=== PATIENT | male | born 1950 | race Caucasian/White ===

== ENCOUNTER → 2020-11-28 | Outpatient (CLI) | payer MEDICARE ==
[~2020-11-28] MED LIST: IOHEXOL 240 MG/ML 50ML VIAL. ONE; IOHEXOL 300 MG/ML 75 ML VIAL. IV ONE
[2020-11-28 12:07] LABS: HEMOGLOBIN ISTAT 15.3 gm/dL; POTASSIUM ISTAT 4.2 mmol/L (3.5-5.0)
--- NOTE | 2020-11-28 16:19 | RAD ---
PQRS Compliance Statement: One or more of the following individualized dose reduction techniques were utilized for this examinat ion: 1. Automated exposure control 2. Adjustment of the mA and/or kV according to patient size 3. Use of iterative reconstruction technique CT ABDOMEN+PELVIS W Clinical Indication: Reason: CECAL CA STAGING. DRINKING AT 1105 Comparison: None. Technique: Helical CT imaging of the abdomen and pelvis is performed after 75 cc of Omnipaque 300 IV contrast. Oral contrast also administered. Findings: Peripheral predominant patchy reticular opacities in the bilateral lung bases are probably chronic. S mall calcified granuloma medial right lower lobe. Cardiac size normal. Moderate atherosclerotic calcification of the abdominal aorta, no aneurysm. Question minimal gallblad beatriz sludge. The liver, spleen, pancreas, and adrenal glands are normal. Kidneys enhance symmetrically , no hydronephrosis. Mild bilateral perinephric stranding is nonspecific. The stomach is not well distended accentuating the wall thickness. Small duodenal diverticulum. No sm all bowel obstruction. There are subcentimeter mesenteric lymph nodes. Small fat-containing umbilical hernia. The appendix is normal. There is a soft tissue density cecal mass partially outlined by oral contrast measuring on the order of 3 cm, image 52. No definite infiltration of the surrounding fat. There are a few tiny pericecal ly mph nodes, no adenopathy, image 51. No obstruction, there is oral contrast distal. There is moderate descending and sigmoid colon diverticulosis. Distal rectum is not well distended ac centuating the wall thickness. Prostate size is normal. The urinary bladder is mostly decompressed accentuating the wall thickness. No pelvic free fluid. No osteolytic or blastic lesion is seen. The sacroiliac joints are partially fused. IMPRESSION: 1. There is a soft tissue density mass of the cecum. No definite infiltration of surrounding fat is identified. 2. There is no adenopathy in the abdomen or pelvis. 3. Moderate distal colon diverticulosis. Electronically signed by: David Alcaraz MD (11/28/2020 4:17 PM) [id number]
== END ==
LOC: CT 10:44
PROVIDERS: ATTEND Internal Medicine Gastroenterology
DX: C18.0 Malignant neoplasm of cecum (principal); K63.89 Other specified diseases of intestine; K57.30 Diverticulosis of large intestine without perforation or abscess without bleeding; I70.0 Atherosclerosis of aorta
CPT/HCPCS: 36415; 74177; 80047; Q9967